=== PATIENT | female | born 1970 | race Caucasian/White ===

== ENCOUNTER 2023-04-03 19:36 | Observation (INO) | payer BC, OTHER ==
[2023-04-03 19:59] VITALS: BMI 29.2
[2023-04-03] MEDS ORDERED: SODIUM CHLORIDE 1,000 ML IV SCH (20:15)
[2023-04-03 20:24] LABS: EOS % 2.3 % (0-4.5); HEMATOCRIT 42.5 % (32.4-45.2); HEMOGLOBIN 14.3 GM/dL (10.7-15.3); LYMPH % 29.8 % (8-40); MCH 32.4 pg (25.7-33.7); MCHC 33.6 g/dl (32.0-36.0); MEAN CELL VOLUME 96.3 fl (80-96); MONO % 8.8 % (3.8-10.2); NEUT % 58.1 % (42.8-82.8); PLATELET COUNT 302 10^3/uL (134-434); RBC 4.41 M/mm3 (3.60-5.2); RDW 14.2 % (11.6-15.6); WHITE BLOOD COUNT 7.2 K/mm3 (4.0-10.0)
[2023-04-03 20:42] LABS: POTASSIUM 3.8 mmol/L (3.5-5.1)
[2023-04-03 20:44] LABS: CALCIUM 9.8 mg/dL (8.5-10.1)
[2023-04-03 20:45] LABS: ALBUMIN 4.5 g/dl (3.4-5.0)
[2023-04-03 20:46] LABS: BLOOD UREA NITROGEN 13.6 mg/dL (7-18)
[2023-04-03 20:48] LABS: CREATININE 0.6 mg/dL (0.55-1.3)
[2023-04-03 20:49] LABS: INR 0.9 (0.83-1.09); PROTHROMBIN TIME (PATIENT) 10.4 SEC (9.7-13.0)
[2023-04-03 20:50] LABS: BILIRUBIN,TOTAL 0.5 mg/dL (0.2-1); TOT PROT 7.8 g/dl (6.4-8.2)
[2023-04-03 20:52] LABS: ACTIVATED PTT 31.5 SECONDS (25.2-36.5)
[2023-04-03 21:42] LABS: EPI CELLS 11 /uL (0-25.1); HYALINE CASTS 0 /uL (0-3.1); PH,URINE 5.5 (5.0-8.0); URINE APPEARANCE CLEAR; URINE BACTERIA 418 /uL (0-1359); URINE BILIRUBIN NEGATIVE (NEGATIVE); URINE COLOR YELLOW; URINE GLUCOSE (UA) NEGATIVE (NEGATIVE); URINE KETONE NEGATIVE (NEGATIVE); URINE LEUK ESTERASE 2+ (NEGATIVE); URINE NITRITE NEGATIVE (NEGATIVE); URINE PROTEIN NEGATIVE (NEGATIVE); URINE RBC 5 /uL (0-23.9); URINE UROBILINOGEN 0.2 mg/dL (0.2-1.0); URINE WBC 147 /uL (0-25.8)
[2023-04-03] MEDS ORDERED: LORazepam 1 MG TABLET PO PRN (23:44)
[2023-04-04 07:57] LABS: HEMATOCRIT 44.7 % (32.4-45.2); HEMOGLOBIN 14.5 GM/dL (10.7-15.3); MCH 32.2 pg (25.7-33.7); MCHC 32.5 g/dl (32.0-36.0); MEAN PLT VOLUME 7.6 fl (7.5-11.1); PLATELET COUNT 264 10^3/uL (134-434); RBC 4.52 M/mm3 (3.60-5.2); RDW 14.3 % (11.6-15.6); WHITE BLOOD COUNT 6.3 K/mm3 (4.0-10.0)
[2023-04-04 08:06] LABS: POTASSIUM 4.4 mmol/L (3.5-5.1)
[2023-04-04] MEDS ORDERED: ALPRAZolam 0.25 MG TABLET PO PRN (08:06)
[2023-04-04 08:11] LABS: CALCIUM 9.8 mg/dL (8.5-10.1)
[2023-04-04 08:13] LABS: ALBUMIN 4.3 g/dl (3.4-5.0); BLOOD UREA NITROGEN 16.3 mg/dL (7-18); MAGNESIUM 2.4 mg/dL (1.8-2.4)
[2023-04-04 08:15] LABS: PHOSPHOROUS 3.9 mg/dL (2.5-4.9)
[2023-04-04 08:16] LABS: CREATININE 0.5 mg/dL (0.55-1.3)
[2023-04-04 08:17] LABS: BILIRUBIN,TOTAL 0.5 mg/dL (0.2-1); TOT PROT 7.4 g/dl (6.4-8.2)
[2023-04-04] MEDS ORDERED: HYDROCHLOROTHIAZIDE 25 MG TABLET (FP) ONE (08:54)
[2023-04-04] MEDS ORDERED: THIAMINE HCL 100 MG TABLET (FP) ONE (08:54)
[2023-04-04] MEDS ORDERED: FOLIC ACID 1 MG TABLET (FP) ONE (08:54)
[2023-04-04] MEDS ORDERED: VALSARTAN 80 MG TABLET ONE (08:55)
[2023-04-04] MEDS ORDERED: CEFTRIAXONE 1 GM/50 ML BAG ONE (08:55)
[2023-04-04] MEDS ORDERED: ESCITALOPRAM OXALATE 10 MG TABLET ONE (08:55)
[2023-04-04] MEDS ORDERED: ENOXAPARIN NA (PORCINE) 40 MG/0.4 ML DISP.SYRIN SQ ONE ×2 (08:55→17:36)
[2023-04-04] MEDS: ENOXAPARIN NA (PORCINE) 40 MG/0.4 ML DISP.SYRIN SQ SCH ×2 (09:03→17:35)
[2023-04-04] MEDS ORDERED: VALSARTAN 80 MG TABLET PO SCH (10:00)
[2023-04-04] MEDS ORDERED: HYDROCHLOROTHIAZIDE 12.5 MG CAPSULE (FP) PO SCH (10:00)
[2023-04-04] MEDS ORDERED: CEFTRIAXONE 1 GM in DEXTROSE 5%-WATER - 50 ML IVPB SCH (10:00)
[2023-04-04] MEDS ORDERED: THIAMINE HCL 100 MG TABLET (FP) PO SCH (10:00)
[2023-04-04] MEDS ORDERED: PATIENT'S OWN MEDICATION (NON-FORMULARY) (Valsartan/Hydrochlorothiazide [Valsartan-Hctz 80 PO SCH (10:00)
[2023-04-04] MEDS ORDERED: FOLIC ACID 1 MG TABLET (FP) PO SCH (10:00)
[2023-04-04] MEDS ORDERED: ESCITALOPRAM OXALATE 20 MG TABLET PO SCH (10:00)
[2023-04-04 13:24] VITALS: RESP 18
[2023-04-04] MEDS ORDERED: ASPIRIN 325 MG TABLET PO ONE (14:57)
[2023-04-04 18:58] VITALS: BP 140/80; PULSE 80; TEMP 98
[2023-04-04] MEDS ORDERED: ROSUVASTATIN CA 20 MG TABLET PO SCH (22:00)
[2023-04-05] MEDS ORDERED: ASPIRIN 81 MG CHEWABLE TABLETS PO SCH (10:00)
[2023-04-05] MEDS ORDERED: HYDROCHLOROTHIAZIDE 12.5 MG CAPSULE (FP) PO SCH (10:00)
[2023-04-05] MEDS ORDERED: VALSARTAN 80 MG TABLET PO SCH (10:00)
== END 2023-04-04 21:20 | disposition home or self-care (01) ==
LOC: JER 19:36 → JERBED 21:23 → OBSVTOIN 21:23 → INTOOBSV 21:23
PROVIDERS: ADMIT Internal Medicine; ATTEND Student in an Organized Health Care Education/Training Program
PROC: 3E03329 Introduction of Other Anti-infective into Peripheral Vein, Percutaneous Approach (ICD-10-PCS; principal; 2023-04-03)
PROC: 3E0337Z Introduction of Electrolytic and Water Balance Substance into Peripheral Vein, Percutaneous Approach (ICD-10-PCS; 2023-04-03)
PROC: 3E013GC Introduction of Other Therapeutic Substance into Subcutaneous Tissue, Percutaneous Approach (ICD-10-PCS; 2023-04-03)
DX: I69.314 Frontal lobe and executive function deficit following cerebral infarction (principal); N39.0 Urinary tract infection, site not specified; Z85.3 Personal history of malignant neoplasm of breast; R20.0 Anesthesia of skin; M21.332 Wrist drop, left wrist; F17.210 Nicotine dependence, cigarettes, uncomplicated; I10 Essential (primary) hypertension; E78.5 Hyperlipidemia, unspecified; F10.90 Alcohol use, unspecified, uncomplicated; F41.0 Panic disorder [episodic paroxysmal anxiety]
CPT/HCPCS: 36415; 70450-TC; 70496-TC; 70498-TC; 70551-TC; 71045-TC-FY; 80053; 80061; 81003; 82550; 82962; 83036; 83735; 84100; 84443; 84484; 85025; 85027; 85610; 85730; 86850; 86900; 86901; 87086; 87635; 93005; 93010; 93306-TC; 93880-TC; 99285-25; G0378